=== PATIENT | male | born 1965 | race Caucasian/White ===

== ENCOUNTER 2017-08-23 23:46 | Inpatient (IN) | payer SELFPAY ==
[~2017-08-23] VITALS: Ht 177.8 cm; Wt 113.9 kg
[2017-08-24] MEDS ORDERED: SODIUM CHLORIDE 0.9% 1,000 ML IVB ONE (00:43)
[2017-08-24] MEDS ORDERED: IOHEXOL 300 MG/ML 100ML BOTTLE IJ ONE (00:47)
[2017-08-24 00:55] LABS: Basophils # (auto) 0 uL; Basophils % (auto) 0.4 % (0.0-2.0); Eosinophils # (auto) 0.3 uL; Lymphocytes # (auto) 1.1 uL; Lymphocytes % (auto) 11.8 % (10.0-50.0); Monocytes # (auto) 0.7 uL; Platelet Count (auto) 230 10^3/uL (140-450)
[2017-08-24 00:57] LABS: Eosinophils % (auto) 2.8 % (0.0-7.0); Hematocrit 28.5 % (41.0-53.0); Hemoglobin 9.3 g/dL (13.5-17.5); Mean Corpuscular Hgb Conc. 32.5 g/dL (32.0-36.0); Monocytes % (auto) 7.3 % (0.0-12.0); Neutrophils # (auto) 7.4 uL; Neutrophils % (auto) 77.7 % (37.0-80.0); Red Blood Cells 3.71 10^6/uL (4.5-5.90); Red Cell Distribution Width 15.3 % (11.8-14.3); White Blood Cell 9.6 10^3/uL (4.4-10.8)
[2017-08-24 01:10] LABS: BUN/Creatinine Ratio 16.2; Calcium 7.5 mg/dL (8.5-10.1); Magnesium 2.3 mg/dL (1.6-2.6)
[2017-08-24 01:14] LABS: Bilirubin, Total 0.3 mg/dL (0.2-1.0); Total Protein 7.1 g/dL (6.4-8.2)
[2017-08-24 01:15] LABS: Potassium 2.8 mmol/L (3.5-5.1)
[2017-08-24 01:16] LABS: INR 1.05 (0.9-1.15); Partial Thromboplastin Time 30.6 sec (22.64-33.71); Prothrombin Time 11.4 sec (9.37-12.3)
[2017-08-24] MEDS ORDERED: POTASSIUM CHL 20 Meq TABLET PO ONE ×2 (01:30→01:31)
[2017-08-24] MEDS ORDERED: SODIUM CHLORIDE 0.9% 1,000 ML IV ONE (03:15)
[2017-08-24] MEDS ORDERED: metroNIDAZOLE 500MG/100ML 100 ML IV ONE (03:15)
[2017-08-24] MEDS ORDERED: ACETAMINOPHEN 325 MG TAB PO PRN (05:15)
[2017-08-24] MEDS ORDERED: ONDANSETRON HCL 4 MG/2 ML VIAL IV PRN (05:15)
[2017-08-24] MEDS ORDERED: NITROGLYCERIN 0.4 MG SL TAB SL PRN (05:15)
[2017-08-24] MEDS ORDERED: MORPHINE SULF INJ 2 MG/ML SYRINGE 1ML IV PRN (05:15)
[2017-08-24] MEDS ORDERED: CALCIUM GLUC 4.65meq/50ml D5AE 50 ML IV ONE (05:15)
[2017-08-24] MEDS ORDERED: TEMAZEPAM 15 MG CAP PO PRN (05:15)
[2017-08-24] MEDS: SODIUM CHLORIDE 0.9% 1,000 ML IV SCH ×2 (05:35→17:45)
[2017-08-24] MEDS: metroNIDAZOLE 500MG/100ML 100 ML IV SCH ×3 (06:02→21:47)
[2017-08-24] MEDS: cefTRIAXone 1GM/10ml IVPUSH 10 ML IV SCH (06:07)
[2017-08-24] MEDS ORDERED: IPRATROPIUM BROM 0.5 MG/2.5ML INH SOL NEB ONE (06:15)
[2017-08-24] MEDS ORDERED: ALBUTEROL SULF 2.5 MG/0.5ML(0.5%) NEB SOLN NEB ONE ×2 (06:15→15:15)
[2017-08-24 06:36] LABS: Urine Bacteria NONE SEEN /hpf (None Seen); Urine Blood TRACE /uL (Negative); Urine Specific Gravity 1.014 (1.001-1.035); Urine WBC 1 /hpf (0 - 3)
[2017-08-24] MEDS ORDERED: AML5T PO (06:56)
[2017-08-24] MEDS ORDERED: LOSA50TA6 PO (07:25)
[2017-08-24] MEDS ORDERED: HYDR25TA4 PO (07:25)
[2017-08-24] MEDS: HYDROcodone-ACET 5/325MG TAB PO PRN ×2 (07:32→20:36)
[2017-08-24 09:00] VITALS: BP 142/77
[2017-08-24] MEDS ORDERED: TRAM50TA2 PO (10:01)
[2017-08-24] MEDS ORDERED: TIZA4CAP7 PO (10:01)
[2017-08-24] MEDS ORDERED: HYDR-4683 PO (10:01)
[2017-08-24] MEDS: ENOXAPARIN SOD 40 MG/0.4 ML SYRINGE SC SCH (10:14)
[2017-08-24] MEDS: PANTOPRAZOLE 40 MG/10 ML VIAL IV SCH (10:14)
[2017-08-24 13:00] VITALS: BP 161/85
[2017-08-24] MEDS ORDERED: LISINOPRIL 20 MG TAB PO ONE (15:00)
[2017-08-24] MEDS ORDERED: amLODIPine BESYLATE 5 MG TAB PO ONE (15:00)
[2017-08-24] MEDS ORDERED: ALBUTEROL SULF 2.5 MG/0.5ML(0.5%) NEB SOLN NEB PRN (15:15)
[2017-08-24] MEDS ORDERED: LISINOPRIL 20 MG TAB PO SCH (15:15)
[2017-08-24 16:02] VITALS: BP 184/90
[2017-08-24 17:00] VITALS: BP 150/68
[2017-08-24 22:00] VITALS: BP 155/76
[2017-08-24] MEDS ORDERED: TEMAZEPAM 15 MG CAP PO SCH (22:00)
[2017-08-25 05:00] VITALS: BP 156/88
[2017-08-25] MEDS: metroNIDAZOLE 500MG/100ML 100 ML IV SCH (05:56)
[2017-08-25] MEDS: SODIUM CHLORIDE 0.9% 1,000 ML IV SCH (06:06)
[2017-08-25 07:02] LABS: Basophils # (auto) 0 uL; Eosinophils # (auto) 0.1 uL; Mean Corpuscular Hemoglobin 24.6 pg (28.0-32.0); Monocytes # (auto) 0.4 uL; Neutrophils # (auto) 2.7 uL; Nucleated Red Blood Cells % 0.1 %; Platelet Count (auto) 235 10^3/uL (140-450); White Blood Cell 4.1 10^3/uL (4.4-10.8)
[2017-08-25 07:10] LABS: Basophils % (auto) 0.8 % (0.0-2.0); Eosinophils % (auto) 2.8 % (0.0-7.0); Hematocrit 33.2 % (41.0-53.0); Hemoglobin 10.6 g/dL (13.5-17.5); Lymphocytes # (auto) 0.8 uL; Lymphocytes % (auto) 20.1 % (10.0-50.0); Mean Corpuscular Volume 76.9 fL (80.0-100.0); Monocytes % (auto) 9.9 % (0.0-12.0); Neutrophils % (auto) 66.4 % (37.0-80.0); Red Blood Cells 4.33 10^6/uL (4.5-5.90); Red Cell Distribution Width 15.3 % (11.8-14.3)
[2017-08-25 07:30] VITALS: BP 148/90
[2017-08-25 07:58] LABS: Albumin 3.2 g/dL (3.4-5.0); BUN/Creatinine Ratio 9.6; Bilirubin, Total 0.4 mg/dL (0.2-1.0); Calcium 8.2 mg/dL (8.5-10.1); Total Protein 7.4 g/dL (6.4-8.2)
[2017-08-25 08:02] LABS: Potassium 2.8 mmol/L (3.5-5.1)
[2017-08-25] MEDS: ENOXAPARIN SOD 40 MG/0.4 ML SYRINGE SC SCH (08:55)
[2017-08-25] MEDS: PANTOPRAZOLE 40 MG/10 ML VIAL IV SCH (08:55)
[2017-08-25] MEDS: cefTRIAXone 1GM/10ml IVPUSH 10 ML IV SCH (08:56)
[2017-08-25 09:00] VITALS: BP 148/90
[2017-08-25] MEDS ORDERED: amLODIPine BESYLATE 5 MG TAB PO SCH (10:00)
[2017-08-25] MEDS ORDERED: LISINOPRIL 20 MG TAB PO SCH (10:00)
[2017-08-25] MEDS ORDERED: POTASSIUM CHL 10% (20 MEQ/15ML) 15ml ORAL SOLN PO ONE (12:00)
[2017-08-25 12:07] VITALS: BP 148/90
[2017-08-25] MEDS ORDERED: POTASSIUM CHL 10% (20 MEQ/15ML) 15ml ORAL SOLN ONE (12:53)
== END 2017-08-25 14:35 | disposition home or self-care (01) | DRG 392 ==
LOC: EDBD 23:46 → ER 23:54 → TELE 23:55 → TELE-WESTW 08-24 08:45 → WEST WING 08-25 05:47
PROVIDERS: ADMIT Nurse Practitioner; ATTEND Family Medicine
DX: K57.92 Diverticulitis of intestine, part unspecified, without perforation or abscess without bleeding (principal); E87.8 Other disorders of electrolyte and fluid balance, not elsewhere classified; E83.51 Hypocalcemia; I95.9 Hypotension, unspecified; E87.6 Hypokalemia; F12.90 Cannabis use, unspecified, uncomplicated; I25.10 Atherosclerotic heart disease of native coronary artery without angina pectoris; J20.9 Acute bronchitis, unspecified; I10 Essential (primary) hypertension; G47.00 Insomnia, unspecified; F41.9 Anxiety disorder, unspecified; F17.210 Nicotine dependence, cigarettes, uncomplicated; I34.1 Nonrheumatic mitral (valve) prolapse; N28.1 Cyst of kidney, acquired; Z79.899 Other long term (current) drug therapy
CPT/HCPCS: 36415; 71045; 74176; 76775; 80053; 81001; 83605; 83690; 83735; 83880; 84484; 85025; 85610; 85730; 87040; 93005; 94640; 94761; 96361; 96365; 96375; 99291; C9113; J3490